=== PATIENT | female | born 1990 | race Caucasian/White ===

== ENCOUNTER 2020-02-27 18:35 | Emergency (ER) | payer BC ==
[2020-02-27] MEDS ORDERED: Ketorolac 60 MG/2 ML SDV IM ONE (19:02)
--- NOTE | 2020-02-27 19:08 | EDM.PDOC ---
ED HPI GENERAL MEDICAL PROBLEM - General Chief Complaint: Chest Pain Stated Complaint: CHEST PAIN Time Seen by Provider: 02/27/20 18:46 Source of Information: Reports: Patient History Limitations: Reports: No Limitations - History of Present Illness INITIAL COMMENTS - FREE TEXT/NARRATIVE: Patient is a 29-year-old female presenting with complaints of chest pain. She states symptoms began early this morning as pain between her shoulder blades and gradually began to wrap around her right side of her chest wall until it came through to the front. She states she has had episodes of this in the past and has been told that it is "the muscles in her chest wall acting up". She has had cardiac work-ups completed with each of these episodes and everything was found to be normal. She denies any shortness of breath or diaphoresis. States that earlier today around 1130 she took some Aleve with minimal relief. She has not taken any medication since that time. She denies any cardiac history, however states after her last episode she was supposed to see a clerk of works but she did not. Middle Chest Pain Score (Numeric/FACES): 10 - Related Data Allergies Allergy/AdvReac Type Severity Reaction Status Date / Time No Known Allergies Allergy Verified 02/27/20 18:45 Home Meds: Home Meds . [Unable to Verify Home Med List] 02/27/20 [History] Past Medical History - Past Surgical History GI Surgical History: Reports: Appendectomy Musculoskeletal Surgical History: Reports: Other (See Below) Other Musculoskeletal Surgeries/Procedures:: knee surgery, elbow surgery Social & Family History - Tobacco Use Smoking Status *Q: Current Every Day Smoker Years of Tobacco use: 7 Packs/Tins Daily: 0.5 - Caffeine Use Caffeine Use: Reports: Coffee - Recreational Drug Use Recreational Drug Use: No ED ROS GENERAL - Review of Systems Review Of Systems: See Below Constitutional: Reports: No Symptoms. Denies: Fever, Chills, Weakness HEENT: Reports: No Symptoms Respiratory: Reports: No Symptoms. Denies: Shortness of Breath, Cough Cardiovascular: Reports: Chest Pain. Denies: Dyspnea on Exertion, Lightheadedness, Palpitations, Syncope Endocrine: Reports: No Symptoms GI/Abdominal: Reports: No Symptoms : Reports: No Symptoms Musculoskeletal: Reports: Back Pain (Upper) Skin: Reports: No Symptoms Neurological: Reports: No Symptoms Psychiatric: Reports: No Symptoms Hematologic/Lymphatic: Reports: No Symptoms Immunologic: Reports: No Symptoms ED EXAM, GENERAL - Physical Exam Exam: See Below Exam Limited By: No Limitations General Appearance: Alert, WD/WN, No Apparent Distress Respiratory/Chest: No Respiratory Distress, Lungs Clear, Normal Breath Sounds, No Accessory Muscle Use, Other (Tenderness to right lateral and midsternal chest.) Cardiovascular: Normal Peripheral Pulses, Regular Rate, Rhythm, No Edema, No Gallop, No JVD, No Murmur, No Rub Extremities: Normal Inspection, Normal Range of Motion, Non-Tender, Normal Capillary Refill, No Pedal Edema Neurological: Alert, Oriented, CN II-XII Intact, Normal Cognition, Normal Gait, Normal Reflexes, No Motor/Sensory Deficits Psychiatric: Normal Affect, Normal Mood Skin Exam: Warm, Dry, Intact, Normal Color, No Rash EKG INTERPRETATION EKG Date: 02/27/20 Time: 18:46 Rhythm: Other (sinus arrhythmia) Rate (Beats/Min): 70 [place]: Normal (`) P-Wave: Present QRS: Normal ST-T: Normal QT: Normal Course - Vital Signs Last Recorded V/S: Last Vital Signs Temp 97.8 F 02/27/20 18:42 Pulse 89 02/27/20 18:42 Resp 16 02/27/20 18:42 BP 122/75 02/27/20 18:42 Pulse Ox 98 02/27/20 18:42 - Orders/Labs/Meds Orders: Active Orders 24 hr Category Date Time Status Chest 2V [CR] Stat Exams 02/27/20 18:47 Taken Labs: Laboratory Tests 02/27/20 02/27/20 Range/Units 18:58 18:58 WBC 10.94 H (3.98-10.04) K/mm3 RBC 4.89 (3.98-5.22) M/mm3 Hgb 14.7 (11.2-15.7) gm/dl Hct 44.6 (34.1-44.9) % MCV 91.2 (79.4-94.8) fl MCH 30.1 (25.6-32.2) pg MCHC 33.0 (32.2-35.5) g/dl RDW Std Deviation 42.3 (36.4-46.3) fL Plt Count 346 (182-369) K/mm3 MPV 9.1 L (9.4-12.3) fl Neut % (Auto) 66.0 (34.0-71.1) % Lymph % (Auto) 22.0 (19.3-51.7) % [place] % (Auto) 9.8 (4.7-12.5) % Eos % (Auto) 1.5 (0.7-5.8) Baso % (Auto) 0.4 (0.1-1.2) % Neut # (Auto) 7.23 H (1.56-6.13) K/mm3 Lymph # (Auto) 2.41 (1.18-3.74) K/mm3 [place] # (Auto) 1.07 H (0.24-0.36) K/mm3 Eos # (Auto) 0.16 (0.04-0.36) K/mm3 Baso # (Auto) 0.04 (0.01-0.08) K/mm3 Manual Slide Review Normal smear Sodium 140 (136-145) mEq/L Potassium 3.6 (3.5-5.1) mEq/L Chloride 102 (98-107) mEq/L Carbon Dioxide 28 (21-32) mEq/L Anion Gap 13.6 (5-15) BUN 12 (7-18) mg/dL Creatinine 0.8 (0.55-1.02) mg/dL Est Cr Clr Drug Dosing 89.60 mL/min Estimated GFR (MDRD) > 60 (>60) mL/min BUN/Creatinine Ratio 15.0 (14-18) Glucose 120 H (74-106) mg/dL Calcium 8.8 (8.5-10.1) mg/dL Total Bilirubin 0.9 (0.2-1.0) mg/dL AST 15 (15-37) U/L ALT 30 (14-59) U/L Alkaline Phosphatase 65 (46-116) U/L Troponin I < 0.017 (0.00-0.056) ng/mL Total Protein 7.0 (6.4-8.2) g/dl Albumin 3.6 (3.4-5.0) g/dl Globulin 3.4 gm/dL Albumin/Globulin Ratio 1.1 (1-2) Meds: Medications Discontinued Medications Generic Name Dose Route Start Last Admin Trade Name Freq PRN Reason Stop Dose Admin Hydromorphone HCl 1 mg 09/05/20 20:17 02/27/20 20:32 Dilaudid IM 02/27/20 20:18 1 mg ONETIME ONE Administration Ketorolac Tromethamine 60 mg 02/27/20 19:02 02/27/20 19:28 Toradol IM 02/27/20 19:03 60 mg ONETIME ONE Administration - Re-Assessments/Exams Free Text/Narrative Re-Assessment/Exam: 02/27/20 20:21 Hematology was found to be grossly unremarkable. Troponin was negative. Chest x-ray was normal. EKG was normal. Patient did have some relief with the Toradol, but still has some discomfort. I have ordered Dilaudid 1 mg IM to be given. 02/27/20 20:59 Patient symptoms have resolved since the Dilaudid. We will discharge her home. Recommend follow-up with your primary care physician at the next available visit. Discharge instructions as documented. Departure - Departure Time of Disposition: 21:00 Disposition: Home, Self-Care 01 Condition: Good Clinical Impression: Musculoskeletal chest pain Instructions: Chest Wall Pain, [id number] Referrals: PCP,Not In Area [Primary Care Provider] - Forms: ED Department Discharge Additional Instructions: You were seen in the emergency department today for a recurrence of musculoskeletal chest pain. A cardiac work-up was completed including an EKG of your heart, chest x-ray, and blood work. This was found to be normal. While in the ER you received an injection of Toradol and Dilaudid for pain which did resolve your symptoms. Recommend that you go home and rest. You may continue to use Tylenol or ibuprofen as needed for discomfort. Recommend follow-up with your primary care provider once you get home. Return to ER for any worsening symptoms. Sepsis Event Note (ED) - Evaluation Sepsis Screening Result: No Definite Risk - Focused Exam Vital Signs: Vital Signs Temp Pulse Resp BP Pulse Ox 02/27/20 18:42 97.8 F 89 16 122/75 98 - My Orders Last 24 Hours: My Active Orders 02/27/20 18:47 Chest 2V [CR] Stat - Assessment/Plan Last 24 Hours: My Active Orders 02/27/20 18:47 Chest 2V [CR] Stat
[2020-02-27] MEDS ORDERED: HYDROmorphone 1 MG/ML Syringe IM ONE (20:17)
--- NOTE | 2020-02-29 11:03 | CR ---
Chest: 2 views of the chest were obtained. Comparison: No prior chest imaging. Heart size and mediastinum are normal. Lungs are clear with no acute parenchymal change. Bony structures are unremarkable. Impression: 1. Nothing acute is seen on 2 view chest x-ray. Diagnostic code #1 This report was dictated in MDT
== END 2020-02-27 21:05 | disposition home or self-care (01) ==
LOC: JD.ED 18:35
DX: R07.89 Other chest pain (principal); I49.9 Cardiac arrhythmia, unspecified; F17.210 Nicotine dependence, cigarettes, uncomplicated
CPT/HCPCS: 36415; 71046; 80053; 84484; 85025; 93005; 96372; 99285; J1170; J1885; 93010; 99283